=== PATIENT | female | born 1970 | race Caucasian/White ===

== ENCOUNTER 2020-01-14 21:09 | Emergency (ER) | payer MEDICAID ==
[~2020-01-14] VITALS: Ht 144.8 cm; Wt 62.4 kg
[~2020-01-14 21:09] MED LIST: LOSA50TA14 PO; METF10002 PO
[2020-01-14 21:18] VITALS: BP 133/86
--- NOTE | 2020-01-14 21:43 | NUR ---
THIS IS A 49Y F THAT COMES IN TONIGHT FOR RIB PAIN, AND WANTING TO BE TESTED FOR THE COVID. PT STS SHE HAD HER POP HER BACK AND IT HURT HER RIBS AND HASN'T GOTTEN BETTER. PT ABLE TO SPEAK IN FULL SENTENCES NADN. ERP AT BEDSIDE FOR ASSESS
[2020-01-14] MEDS ORDERED: ACETAMINOPHEN 500 MG TABLET ONE (21:51)
[2020-01-14] MEDS ORDERED: IBUPROFEN 600 MG TABLET ONE (21:52)
[2020-01-14] MEDS ORDERED: ACETAMINOPHEN 500 MG TABLET PO ONE (22:00)
[2020-01-14] MEDS ORDERED: IBUPROFEN 600 MG TABLET PO ONE (22:00)
[2020-01-14] MEDS ORDERED: ACETAMINOPHEN 325 MG TABLET PO ONE (22:00)
== END 2020-01-14 23:20 | disposition home or self-care (01) ==
LOC: ED 21:50
DX: R07.89 Other chest pain (principal); Z20.828 Contact with and (suspected) exposure to other viral communicable diseases; R05 Cough; R06.02 Shortness of breath; I10 Essential (primary) hypertension; E11.9 Type 2 diabetes mellitus without complications; F17.210 Nicotine dependence, cigarettes, uncomplicated
CPT/HCPCS: 36415; 71045; 87635; 99284; 99406

== ENCOUNTER 2020-02-24 16:07 | Emergency (ER) | payer MEDICAID ==
[~2020-02-24] VITALS: Ht 144.8 cm; Wt 56.5 kg
--- NOTE | 2020-02-24 16:36 | NUR ---
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
[2020-02-24 17:38] VITALS: BP 114/72
--- NOTE | 2020-02-24 18:06 | NUR ---
LATE ENTRY DUE TO PATIENT CARE: THIS IS A 49 YO FEMALE COMING IN FOR SOB/COUGH/SORE THROAT/BODY ACHES AND PAINS FOR 2-3 DAYS, ACOOMPANIED BY DAUGHTER (WHO IS ALSO A PATIENT). DAUGHTER WENT BACK TO SCHOOL, UNKNOWN IF ANYONE SICK AT SCHOOL. RESPIRATIONS EVEN AND UNLABORED, LUNG SOUNDS CLEAR BUT SLIGHTLY DIMINISHED THROUGHOUT. ALL MONITORING IN PLACE, VSS, NADN. CALL LIGHT IN REACH.
[2020-02-24 18:09] LABS: BASOPHILS # (AUTO) 0.06 x10^3/uL (0-0.1); BASOPHILS % (AUTO) 1 % (0-1); EOSINOPHILS # (AUTO) 0.29 x10^3/uL (0-0.4); EOSINOPHILS % (AUTO) 3 % (1-7); LYMPHOCYTES # (AUTO) 2.43 x10^3/uL (1-3.4); LYMPHOCYTES % (AUTO) 26 % (22-44); MD NO; MEAN CORPUSCULAR HEMOGLOBIN 31.6 pg (27.0-34.8); MEAN CORPUSCULAR HGB CONC 33.5 g/dL (32.4-35.8); MEAN CORPUSCULAR VOLUME 94.4 fL (80-100); MEAN PLATELET VOLUME 7.8 fL (7.4-10.4); MONOCYTES # (AUTO) 0.68 x10^3/uL (0.2-0.8); MONOCYTES % (AUTO) 7 % (2-9); NEUTROPHILS # (AUTO) 5.72 x10^3/uL (1.8-6.8); NEUTROPHILS % (AUTO) 62 % (42-75); PLATELET COUNT 293 x10^3/uL (130-400); RED BLOOD COUNT 4.87 x10^6/uL (3.82-5.3); RED CELL DISTRIBUTION WIDTH 13.7 % (9.6-15.2)
[2020-02-24 18:21] LABS: ALBUMIN 3.5 g/dL (3.4-5.0); ANION GAP 5 mmol/L (5-15); CALCIUM 8.6 mg/dL (8.5-10.1); CHLORIDE 111 mmol/L (98-107); CREATININE 0.71 mg/dL (0.55-1.02)
[2020-02-24 18:25] LABS: TROPONIN I < 0.015 ng/mL (0.000-0.045)
--- NOTE | 2020-02-24 19:32 | NUR ---
Patient given discharge instructions and they have confirmed that they understand the instructions. Patient ambulatory with steady gait.
== END 2020-02-24 19:34 | disposition home or self-care (01) ==
LOC: ED 18:31
DX: J44.9 Chronic obstructive pulmonary disease, unspecified (principal); J70.5 Respiratory conditions due to smoke inhalation; E11.9 Type 2 diabetes mellitus without complications; I10 Essential (primary) hypertension
CPT/HCPCS: 36415; 71045; 80048; 82040; 84484; 85025; 93005; 99285

== ENCOUNTER 2020-03-14 18:42 | Emergency (ER) | payer MEDICAID ==
[~2020-03-14] VITALS: Ht 144.8 cm; Wt 54.8 kg
[2020-03-14 18:52] VITALS: BP 141/90
--- NOTE | 2020-03-14 19:27 | NUR ---
PT REPORTS SHE HAS AN ABSCESS ON HER RIGHT BUTTOCKS AREA.
== END 2020-03-14 20:15 | disposition home or self-care (01) ==
LOC: ED 19:50
DX: L02.91 Cutaneous abscess, unspecified (principal); J44.9 Chronic obstructive pulmonary disease, unspecified; E11.9 Type 2 diabetes mellitus without complications; I10 Essential (primary) hypertension; F17.210 Nicotine dependence, cigarettes, uncomplicated
CPT/HCPCS: 99283